=== PATIENT | female | born 1950 | race Caucasian/White ===

== ENCOUNTER 2019-02-24 10:29 | Inpatient (IN) ==
[2019-02-24] MEDS ORDERED: LACTATED RINGERS 1,000 ML IV ONE (11:43)
[2019-02-24] MEDS ORDERED: AZITHROMYCIN 500 MG in DEXTROSE 5% IN WATER 250 ML IV SCH (11:45)
[2019-02-24] MEDS ORDERED: methylPREDNISolone SOD SUCC 125 MG/2 ML VIAL IV ONE (11:45)
[2019-02-24] MEDS ORDERED: cefTRIAXone 1 GM in DEXTROSE 5% IN WATER 50 ML IV SCH (11:45)
[2019-02-24] MEDS ORDERED: IPRATROPIUM/ALBUTEROL 3 ML AMPUL.NEB NEB ONE (11:46)
--- NOTE | 2019-02-24 12:03 | Emergency Department Note ---
Weakness HPI - General Chief complaint: Weakness Stated complaint: Weakness, SOB Time Seen by Provider: 02/24/19 10:45 Source: EMS Mode of arrival: EMS Limitations: no limitations - History of Present Illness HPI Narrative: This 68-year-old female is brought in by ambulance secondary to concerns by the adult protective services worker. APS was in today to visit with the patient, had serious concerns regarding hygiene and healthcare issues of this patient in the private home setting up. Apparently, the house was infested with myself, the patient was too weak to take care of herself, she was diagnosis having metastatic lung cancer yesterday, metastatic to the chest wall. She continues to smoke 3 packages a day, is unable to provide meals for herself, is not eating, not drinking fluids, she's having issues with pain even though she was given hydrocodone yesterday for her lung cancer. She wanted to go home and yesterday, did issue suicidal statements, but then it was thought that she was still safe to go home. His refusing care yesterday, had an elevated white count, does have a history of COPD as well as lung cancer and at this time is brought in because she is not safe to stay at home. Also Adult Protective Services was being an advocate for her and was recommending that her house be cleaned and the infestation issue addressed before she can go back home. She is willing to stay at this point, at least 1 night for hydration, comfort care issues and I told her we could at least address her COPD. MD Complaint: generalized weakness - Related Data Previous Rx's Medication Instructions Recorded Albuterol Sulfate [Ventolin] 2 puff INH Q4-6HP PRN #1 inhaler 02/23/19 Allergies Allergy/AdvReac Type Severity Reaction Status Date / Time Sulfa (Sulfonamide Allergy Hives Verified 02/24/19 14:39 Antibiotics) Review of Systems Limitations: ROS unobtainable due to patients medical condition Constitutional: Reports: weakness, weight change, sweats Cardiovascular: Reports: chest pain Past Medical History - Past Medical History Source: nursing notes reviewed Medical history: Reports: cancer, COPD, hypertension Surgical history ED: Reports: non-contributory - Social History smoking status: Current every day smoker Alcohol use: Reports: Unknown Drug use: Reports: unknown Physical Exam Limitations: physical limitation General appearance: alert, in distress Head: atraumatic, normocephalic, normal inspection Eye: Present: normal appearance, PERRL, EOMI. Absent: scleral icterus ENT: Present: normal exam, normal oropharynx, mucous membranes dry, TM's normal bilaterally Neck: Present: normal inspection, full ROM. Absent: meningismus Chest: Present: tenderness, other (tender to the left lateral chest wall) Respiratory: Present: respiratory distress, rales/crackles, wheezes, accessory muscle use, prolonged expiratory phase, decreased breath sounds Cardiovascular: Present: regular rate, tachycardia, systolic murmur Abdominal: Present: soft, normal bowel sounds. Absent: distention, tenderness, guarding, rebound Extremities: Present: normal inspection, full ROM. Absent: tenderness, pedal edema Back: Present: normal inspection. Absent: CVA tenderness (R), CVA tenderness (L) Neurological: Present: alert, oriented X3. Absent: motor sensory deficit Psychiatric: Present: depressed, flat affect Skin: Present: warm, dry, cyanosis Course Vital Signs Temperature 97.7 F 02/24/19 10:30 Respiratory Rate 24 H 02/24/19 10:30 Blood Pressure 173/123 02/24/19 10:30 Temperature 97.7 F 02/24/19 18:57 Pulse Rate 107 H 02/24/19 20:10 Respiratory Rate 95 H 02/24/19 20:10 Blood Pressure 130/79 02/24/19 18:57 Pulse Oximetry (%) 97 02/24/19 18:57 Weakness - MDM Narrative Medical decision making narrative: Impression is COPD exacerbation, metastatic lung cancer. Pneumonia. Discussed hospital admission with Dr. Dukes - Lab Data Lab results reviewed: Yes I reviewed the patient's lab results. Result diagrams: 02/24/19 12:05 02/24/19 12:05 Lab Results 02/24/19 02/24/19 02/24/19 Range/Units 12:05 12:05 12:05 WBC 13.0 H (4.5-11.0) K/mcL RBC 5.59 H (4.00-5.20) M/mcL Hgb 15.5 H (12.0-15.0) g/dL Hct 48.5 H (36.0-48.0) % MCV 86.8 (80.0-100.0) fL MCH 27.8 (26.0-34.0) pg MCHC 32.0 (31.0-36.0) g/dL RDW 14.1 (11.5-14.5) % Plt Count 333 (140-440) K/mcL MPV 9.8 (7.4-10.4) fL Gran % 84.7 H (38.0-78.0) % Lymph % (Auto) 6.9 L (15.5-49.0) % [place] % (Auto) 8.2 (1.0-12.0) % Eos % (Auto) 0.1 (0.0-7.0) % Baso % (Auto) 0.1 (0.0-2.0) % Gran # 11.0 H (1.8-8.0) K/mcL Lymph # (Auto) 0.9 L (1.5-4.8) K/mcL [place] # (Auto) 1.1 H (0.1-0.9) K/mcL Eos # (Auto) 0 (0.0-0.7) K/mcL Baso # (Auto) 0 (0.0-0.3) K/mcL VBG Lactic Acid (0.5-2.0) mmol/L Sodium 136 (133-145) mmol/L Potassium 3.9 (3.3-5.1) mmol/L Chloride 97 (96-108) mmol/L Carbon Dioxide 22 (22-30) mmol/L Anion Gap 17.0 H (8-16) BUN 25 H (8-23) mg/dl Creatinine 0.7 (0.6-1.1) mg/dl GFR Calculation 89 Glucose 87 (70-105) mg/dL Calcium 10.1 (8.6-10.4) mg/dl Total Bilirubin 1.1 H (0.0-1.0) mg/dL AST 38 H (0-37) U/l ALT 15 (0-40) U/l Alkaline Phosphatase 118 H (39-117) U/L Troponin T < 0.01 (0-0.03) ng/ml NT-Pro-B Natriuret Pep 2282.0 H (0-125) pg/ml Total Protein 9.5 H (5.9-8.4) gm/dL Albumin 4.1 (3.2-5.2) gm/dL Globulin 5.4 H (2.2-3.7) gm/dL Albumin/Globulin Ratio 0.8 L (1.0-2.3) 02/24/19 Range/Units 12:48 WBC (4.5-11.0) K/mcL RBC (4.00-5.20) M/mcL Hgb (12.0-15.0) g/dL Hct (36.0-48.0) % MCV (80.0-100.0) fL MCH (26.0-34.0) pg MCHC (31.0-36.0) g/dL RDW (11.5-14.5) % Plt Count (140-440) K/mcL MPV (7.4-10.4) fL Gran % (38.0-78.0) % Lymph % (Auto) (15.5-49.0) % [place] % (Auto) (1.0-12.0) % Eos % (Auto) (0.0-7.0) % Baso % (Auto) (0.0-2.0) % Gran # (1.8-8.0) K/mcL Lymph # (Auto) (1.5-4.8) K/mcL [place] # (Auto) (0.1-0.9) K/mcL Eos # (Auto) (0.0-0.7) K/mcL Baso # (Auto) (0.0-0.3) K/mcL VBG Lactic Acid 1.7 (0.5-2.0) mmol/L Sodium (133-145) mmol/L Potassium (3.3-5.1) mmol/L Chloride (96-108) mmol/L Carbon Dioxide (22-30) mmol/L Anion Gap (8-16) BUN (8-23) mg/dl Creatinine (0.6-1.1) mg/dl GFR Calculation Glucose (70-105) mg/dL Calcium (8.6-10.4) mg/dl Total Bilirubin (0.0-1.0) mg/dL AST (0-37) U/l ALT (0-40) U/l Alkaline Phosphatase (39-117) U/L Troponin T (0-0.03) ng/ml NT-Pro-B Natriuret Pep (0-125) pg/ml Total Protein (5.9-8.4) gm/dL Albumin (3.2-5.2) gm/dL Globulin (2.2-3.7) gm/dL Albumin/Globulin Ratio (1.0-2.3) - Radiology Data Radiology results reviewed: Yes I reviewed the patient's radiology results. Disposition Pt seen by LATHE MACHINE OPERATOR/PA only: No Clinical Impression: Lung cancer Disposition: Xfer As Inpt ([facility]) Condition: Serious
[2019-02-24] MEDS ORDERED: FAMOTIDINE 20 MG TABLET PO ONE (12:05)
[2019-02-24] MEDS ORDERED: NAPROXEN 250 MG TABLET PO ONE (12:05)
[2019-02-24] MEDS ORDERED: NITROGLYCERIN 1 GM OINT.TOP TD ONE (12:05)
[2019-02-24] MEDS ORDERED: AZITHROMYCIN 500 MG VIAL IV ONE (12:22)
[2019-02-24 12:34] LABS: Basophils # (Auto) 0 K/mcL (0.0-0.3); Basophils % (Auto) 0.1 % (0.0-2.0); Eosinophils # (Auto) 0 K/mcL (0.0-0.7); Eosinophils % (Auto) 0.1 % (0.0-7.0); Granulocytes % (Auto) 84.7 % (38.0-78.0); Hematocrit 48.5 % (36.0-48.0); Hemoglobin 15.5 g/dL (12.0-15.0); Lymphocytes # (Auto) 0.9 K/mcL (1.5-4.8); Lymphocytes % (Auto) 6.9 % (15.5-49.0); Mean Cell Volume 86.8 fL (80.0-100.0); Mean Platelet Volume 9.8 fL (7.4-10.4); Monocytes # (Auto) 1.1 K/mcL (0.1-0.9); Monocytes % (Auto) 8.2 % (1.0-12.0); Platelet Count 333 K/mcL (140-440); RBC 5.59 M/mcL (4.00-5.20); Red Cell Distribution Width 14.1 % (11.5-14.5)
--- NOTE | 2019-02-24 12:40 | Internal Med History&Physical ---
Medical - H&P: [facility] Patient information: Note initiated : 02/24/19 at 12:35 pm Service Date, if different from initiated Date: [] Patient: Juanis Ward a 68 y/o F admitted on for Weakness, SOB. Chief Complaint: [] Chief complaint: Shortness of breath, cough and chest pain History of present illness: Ms. Ward is a 68 year old F with a known history of 100 pack history of smoking active smoker and COPD who presents to the second time to the ER after she is brought in by APS services with significant concerns about her ability to take care of herself. Patient was diagnosed with metastatic cancer on 02/[address] involving chest/mediastinum with right lung obstructive pneumon ia/collapse. She however refused treatment and chose to go home. During today's evaluation she was found to have a white count of 13,000, lactic acid 2.3 and profoundly hypoxic with sats low 80s. During today's visit patient expressed consent for hospitalization for management of COPD however she does not want cancer to be addressed and wants to be comfortable. She also refused IV steroids but agreeable to antibiotics and inhaled bronchodilators. Hospital service was consulted for management of above. At the time of evaluation patient is very anxious. She is extremely malnourished. Complains of mid chest pain in the setting of metastatic lung tumor. Pain exacerbates with movement and deep breaths. She endorses to yellow productive sputum with increasing purulence. She she also endorses to incontinence and occasional diarrhea. She endorses to loss of appetite but denies hemoptysis, headache or photophobia or vision changes. She denies sick contacts but continues to smoke to 3 packs a day. Her only next of kin is her brother Tremayne but does not have any other help or friends in town. She lives alone and from the description of APS services appears to be extremely unhy gienic and hazardous health situation with feces everywhere. Review of systems 10 point review system was performed and is negative except for ones cussed above Medical - H&P: PMH Medical history: COPD Tobacco dependence Malnutrition Recent diagnosis of lung cancer Medical - H&P: Meds Home Medications Medication Instructions Recorded Confirmed Type Albuterol Sulfate [Ventolin] 2 puff INH Q4-6HP PRN #1 inhaler 02/23/19 02/24/19 Rx Allergies Allergy/AdvReac Type Severity Reaction Status Date / Time Sulfa (Sulfonamide Allergy Mild Hives Verified 02/25/19 07:12 Antibiotics) Medical - H&P: Exam - Constitutional Vitals: Temp Resp BP 97.7 F 25 H 180/160 02/24/19 10:30 02/24/19 11:47 02/24/19 11:47 General appearance: moderate distress (Chest pain and shortness of breath) Exam: Patient alert and respond to commands Head normocephalic Oral cavity dry No ear nose discharge Neck lymphadenopathy noted S1-S2 hyperdynamic Pansystolic murmur grade 2 Absent breath sounds right chest Diminished breath sounds left side Expiratory rhonchi Abdomen soft nontender Lower extremity no cyanosis, upper extremity digital clubbing noted with cyanosis Psych alert cooperative but anxious Neuro nonfocal Medical - H&P: Reslt - Labs CBC & Chem 7: 02/25/19 03:50 02/25/19 03:50 Labs: Short CBC 02/24/19 Range/Units 12:05 WBC 13.0 H (4.5-11.0) K/mcL Hgb 15.5 H (12.0-15.0) g/dL Hct 48.5 H (36.0-48.0) % Plt Count 333 (140-440) K/mcL Medical - H&P: A/P (1) Metastatic cancer to chest wall Current visit: Yes Status: Acute * Metastatic cancer likely lung primary with this extension to chest wall/bones. Aggressive pain management. Patient does not want malignancy addressed including further evaluation with biopsy or pulmonary consult. Patient considering hospice * Pain management as needed opioids * Right lung collapse secondary to hilar mass with extrinsic compression- continue pulmonary toilet. Patient does not want bronchoscopy or pulmonary interventions. Extremely poor prognosis * COPD exacerbation-antibiotics/bronchodilators. Patient refuses steroids * Protein calorie malnutrition-protein calorie supplements per dietitian * DNR * Prophylaxis heparin Plan * Inpatient admission, anticipate a minimum of 2 midnight hospitalization * COPD management guidelines * Aggressive pain management * Goals of care coordination in light of extremely poor prognosis, possible transition to hospice * Case management coordinate safe discharge plan
[2019-02-24 13:17] LABS: ALT/SGPT 15 U/l (0-40); AST/SGOT 38 U/l (0-37); Albumin 4.1 gm/dL (3.2-5.2); Albumin/Globulin Ratio 0.8 (1.0-2.3); Alkaline Phosphatase 118 U/L (39-117); Bilirubin,Total 1.1 mg/dL (0.0-1.0); Blood Urea Nitrogen 25 mg/dl (8-23); Calcium 10.1 mg/dl (8.6-10.4); Carbon Dioxide 22 mmol/L (22-30); Chloride 97 mmol/L (96-108); Globulin 5.4 gm/dL (2.2-3.7); Glomerular Filtration Rate 89; Glucose 87 mg/dL (70-105)
[2019-02-24] MEDS ORDERED: 0.9 % SODIUM CHLORIDE 1,000 ML IV ONE (13:25)
[2019-02-24] MEDS ORDERED: LEVOFLOXACIN 500 MG TABLET PO ONE (13:29)
[2019-02-24] MEDS ORDERED: ACETAMINOPHEN 650 MG/65 ML BOTTLE IV PRN (14:20)
[2019-02-24] MEDS ORDERED: ONDANSETRON 4 MG/2 ML VIAL IV PRN (14:20)
[2019-02-24] MEDS ORDERED: POLYETHYLENE GLYCOL 3350 17 GM PACKET PO PRN (14:20)
[2019-02-24] MEDS ORDERED: BISACODYL 10 MG SUPP.RECT PR PRN (14:20)
[2019-02-24] MEDS ORDERED: ONDANSETRON 4 MG ODT TABLET SL PRN (14:20)
[2019-02-24] MEDS ORDERED: MAGNESIUM SULFATE 2 GM/50 ML BAG IV PRN (14:20)
[2019-02-24] MEDS ORDERED: ACETAMINOPHEN 325 MG TABLET PO PRN (14:20)
[2019-02-24] MEDS ORDERED: POTASSIUM CHLORIDE 20 MEQ PACKET PO PRN (14:20)
[2019-02-24] MEDS ORDERED: MAGNESIUM HYDROXIDE 30 ML ORAL.SUSP PO PRN (14:20)
[2019-02-24] MEDS ORDERED: LEVOFLOXACIN 250 MG/50 ML BAG IV ONE (14:45)
[2019-02-24] MEDS: IPRATROPIUM/ALBUTEROL 3 ML AMPUL.NEB NEB SCH ×3 (14:56→22:38)
[2019-02-24] MEDS: 0.9 % SODIUM CHLORIDE 10 ML SYRINGE IV SCH ×2 (14:59→20:03)
[2019-02-24] MEDS: 0.9 % SODIUM CHLORIDE 1,000 ML IV SCH (16:47)
[2019-02-24] MEDS: BUDESONIDE 0.5 MG/2 ML AMPUL.NEB NEB SCH (19:00)
[2019-02-24] MEDS: LORazepam 2 MG/ML VIAL IV PRN (20:02)
[2019-02-24] MEDS: NICOTINE 21 MG PATCH TOPICAL SCH (20:02)
[2019-02-24] MEDS: DOCUSATE SODIUM 100 MG CAPSULE PO SCH (20:03)
[2019-02-24] MEDS: SENNOSIDES/DOCUSATE SODIUM 1 TAB TABLET PO SCH (20:03)
[2019-02-24] MEDS: HEPARIN 5,000 UNIT/ML VIAL SQ SCH (20:12)
[2019-02-24] MEDS ORDERED: MELATONIN 3 MG TABLET PO PRN (21:00)
[2019-02-25] MEDS: LORazepam 2 MG/ML VIAL IV PRN ×2 (02:00→11:07)
[2019-02-25] MEDS: IPRATROPIUM/ALBUTEROL 3 ML AMPUL.NEB NEB SCH ×5 (03:37→19:39)
[2019-02-25] MEDS: 0.9 % SODIUM CHLORIDE 1,000 ML IV SCH ×2 (04:07→12:27)
[2019-02-25] MEDS: 0.9 % SODIUM CHLORIDE 10 ML SYRINGE IV SCH ×3 (05:29→21:16)
[2019-02-25 05:44] LABS: Hematocrit 42.7 % (36.0-48.0); Hemoglobin 13.5 g/dL (12.0-15.0); Mean Cell Volume 88.5 fL (80.0-100.0); Mean Corpuscular HGB Conc 31.6 g/dL (31.0-36.0); Mean Platelet Volume 9.9 fL (7.4-10.4); Platelet Count 263 K/mcL (140-440); RBC 4.83 M/mcL (4.00-5.20); Red Cell Distribution Width 14.5 % (11.5-14.5); WBC 9.5 K/mcL (4.5-11.0)
[2019-02-25 05:50] LABS: Chloride 100 mmol/L (96-108)
[2019-02-25 05:52] LABS: ALT/SGPT 13 U/l (0-40); AST/SGOT 32 U/l (0-37); Albumin/Globulin Ratio 0.7 (1.0-2.3); Alkaline Phosphatase 98 U/L (39-117); Bilirubin,Direct 0.3 mg/dL (0.0-0.3); Bilirubin,Total 0.8 mg/dL (0.0-1.0); Blood Urea Nitrogen 27 mg/dl (8-23); Calcium 9.3 mg/dl (8.6-10.4); Carbon Dioxide 20 mmol/L (22-30); Globulin 4.6 gm/dL (2.2-3.7); Glomerular Filtration Rate 89; Glucose 80 mg/dL (70-105); Lactate Dehydrogenase 534 U/L (94-250); Phosphorous 2.7 mg/dL (2.7-4.5); Triglycerides 114 mg/dl (<150); Uric Acid 6.7 mg/dL (2.5-8.0)
[2019-02-25] MEDS: BUDESONIDE 0.5 MG/2 ML AMPUL.NEB NEB SCH ×2 (07:17→19:39)
[2019-02-25 08:11] LABS: Lymphocytes % 5 % (15-49); Monocytes % (Manual) 16 % (1-12); Platelet Estimate NORMAL (NORMAL); RBC Morphology NORMAL (NORMAL); Segmented Neutrophils % 79 % (38-78)
[2019-02-25] MEDS ORDERED: LEVOFLOXACIN 500 MG TABLET PO SCH (09:00)
[2019-02-25] MEDS: LEVOFLOXACIN 750 MG/150 ML BAG IV SCH (09:34)
[2019-02-25] MEDS: HEPARIN 5,000 UNIT/ML VIAL SQ SCH ×3 (09:34→21:19)
[2019-02-25] MEDS: MULTIVIT,THER IRON,CA,FA & MIN 1 TABLET PO SCH (09:35)
[2019-02-25] MEDS: THIAMINE 100 MG TABLET PO SCH (09:35)
[2019-02-25] MEDS: DOCUSATE SODIUM 100 MG CAPSULE PO SCH ×2 (09:35→21:15)
[2019-02-25] MEDS: NICOTINE 21 MG PATCH TOPICAL SCH (09:43)
[2019-02-25] MEDS ORDERED: LEVOFLOXACIN 500 MG TABLET PO ONE (13:24)
[2019-02-25] MEDS: HYDROmorphone 2 MG/ML VIAL IV PRN (14:54)
--- NOTE | 2019-02-25 15:17 | Internal Med Progress Note ---
Medical - PN: Subj Patient information: Note initiated : 02/25/19 at 3:15 pm Service Date, if different from initiated Date: [] Patient: Juanis Ward a 68 y/o F admitted on 02/24/19 for Weakness, SOB. Chief Complaint: [] Interval history: Ms. Ward is a 68 year old F with a known 100 pack history of smoking and COPD who presents to the second time to the ER in 24 hours after she is brought in by APS services with significant concerns about her ability to take care of herself. Patient was diagnosed with metastatic cancer on 02/[address] involving chest/mediastinum with right lung obstructive pneumonia/collapse. She however refused treatment and chose to go home. During today's evaluation a white count of 13,000, lactic acid 2.3 and profoundly hypoxic with sats low 80s. Patient expressed consent for hospitalization for management of COPD however she does not want cancer to be addressed and wants to be comfortable. She also refused IV steroids but agreeable to antibiotics and inhaled bronchodilators. Hospital service was consulted for management of above. At the time of evaluation patient is very anxious. She is extremely malnourished. Complains of mid chest pain in the setting of metastatic lung tumor. Pain exacerbates with movement and deep breaths. She endorses to yellow productive sputum with increasing purulence. She she also endorses to incontinence and occasional diarrhea. She endorses to loss of appetite but denies hemoptysis, headache or photophobia or vision changes. She denies sick contacts but continues to smoke to 3 packs a day. Her only next of kin is her brother Tremayne but does not have any other help or friends in town. She lives alone and from the description of APS services appears to be extremely unhygienic and hazardous health situation with feces everywhere. 02/25-patient intimately confused. No family members at bedside. Continues to refuse treatment. Wants to go home. Case management coordinating a safe discharge plan. No overnight fever chills. Hypoxia improved now on room air. White count down to 9.5. Poor nutritional status. - Constitutional Vitals: Vital Signs Temp Pulse Resp BP Pulse Ox 98.3 F 106 H 18 149/88 93 02/25/19 11:55 02/25/19 11:55 02/25/19 11:55 02/25/19 11:55 02/25/19 11:55 Period Temp Pulse Resp BP Sys/[place] Pulse Ox Last 24 Hr 97.7 F-98.9 F 91-110 18-95 108-149/70-88 92-97 Intake and Output 02/25/19 02/25/19 02/25/19 05:59 13:59 21:59 Output Total 20 100 Balance -20 -100 Weight 98 lb 8 oz Patient Weight 02/26/19 05:59 Weight 98 lb 8 oz Intake & Output: Intake & Output 02/25/19 02/25/19 02/25/19 05:59 13:59 21:59 Output Total 20 100 Balance -20 -100 Weight 98 lb 8 oz Output: Void Amount 20 100 Other: Urine Color Tea Colored # Voids 1 1 General appearance: moderate distress Exam: Intermittently agitated Anxious Nonlabored breathing Was found smoking in the room Medical - PN: Obj Da - Labs CBC & Chem 7: 02/25/19 03:50 02/25/19 03:50 Labs: Abnormal Lab Results 02/25/19 02/25/19 02/24/19 03:50 03:50 12:05 WBC RBC Hgb Hct Gran % Lymph % (Auto) Gran # Lymph # (Auto) [place] # (Auto) Seg Neutrophils % 79 H Lymphocytes % 5 L Monocytes % (Manual) 16 H Carbon Dioxide 20 L Anion Gap 17.0 H BUN 27 H 25 H Total Bilirubin 1.1 H AST 38 H Alkaline Phosphatase 118 H Lactate Dehydrogenase 534 H NT-Pro-B Natriuret Pep 2282.0 H Total Protein 9.5 H Albumin 3.0 L Globulin 4.6 H 5.4 H Albumin/Globulin Ratio 0.7 L 0.8 L 02/24/19 12:05 WBC 13.0 H RBC 5.59 H Hgb 15.5 H Hct 48.5 H Gran % 84.7 H Lymph % (Auto) 6.9 L Gran # 11.0 H Lymph # (Auto) 0.9 L [place] # (Auto) 1.1 H Seg Neutrophils % Lymphocytes % Monocytes % (Manual) Carbon Dioxide Anion Gap BUN Total Bilirubin AST Alkaline Phosphatase Lactate Dehydrogenase NT-Pro-B Natriuret Pep Total Protein Albumin Globulin Albumin/Globulin Ratio Meds: Medications Acetaminophen (Tylenol) 650 mg PO Q4-6HP PRN; Protocol PRN Reason: Per Pain Protocol/Fever > 101 Hydrocodone Bitart/Acetaminophen ([place] 5/325mg) 0 tab PO Q4HP PRN; Protocol PRN Reason: Per Pain Protocol Albuterol/Ipratropium (Duoneb) 3 ml NEB Q4HRT [facility] Last Admin: 02/25/19 10:14 Dose: 3 ml Documented by: Bisacodyl (Dulcolax) 10 mg OK Q2-3DAYS PRN PRN Reason: Constipation Budesonide (Pulmicort) 0.5 mg NEB Q12 [facility] Last Admin: 02/25/19 07:17 Dose: Not Given Documented by: Docusate Sodium (Colace) 100 mg PO BID [facility] Last Admin: 02/25/19 09:35 Dose: 100 mg Documented by: Heparin Sodium (Porcine) (Heparin) 5,000 unit SQ Q12 [facility] Last Admin: 02/25/19 11:43 Dose: Not Given Documented by: Hydromorphone HCl (Dilaudid) 0 mg IV Q4HP PRN; Protocol PRN Reason: Per Pain Protocol Last Admin: 02/25/19 14:54 Dose: 0.5 mg Documented by: Sodium Chloride (Sodium Chloride 0.9%) 1,000 mls @ 50 mls/hr IV .Q20H [facility] Stop: 02/27/19 02:19 Last Admin: 02/25/19 12:27 Dose: Not Given Documented by: Acetaminophen (Ofirmev) 650 mg in 65 mls @ 130 mls/hr IV Q6HP PRN; Protocol PRN Reason: Per Pain Protocol/Fever > 101 Magnesium Sulfate (Magnesium Sulfate) 2 gm in 50 mls @ 50 mls/hr IV UD PRN PRN Reason: MG = or < 1.7 Levofloxacin (Levaquin) 750 mg in 150 mls @ 100 mls/hr IV DAILY [facility]; Protocol Last Admin: 02/25/19 09:34 Dose: 100 mls/hr Documented by: Iron Carb/Multivit/[place]/Folic Acid (Multivitamin W/Minerals) 1 tab PO DAILY [facility] Last Admin: 02/25/19 09:35 Dose: 1 tab Documented by: Lorazepam (Ativan) 0.5 mg IV Q6HP PRN PRN Reason: ANXIETY/SEDATION Last Admin: 02/25/19 11:07 Dose: 0.5 mg Documented by: Magnesium Hydroxide (Milk Of Magnesia) 30 ml PO HSP PRN PRN Reason: Constipation Melatonin (Melatonin 3mg Tablet) 3 mg PO HSP PRN PRN Reason: Insomnia Nicotine (Nicoderm) 21 mg TOPICAL DAILY@1000 [facility] Last Admin: 02/25/19 09:43 Dose: 21 mg Documented by: Ondansetron HCl (Zofran Odt) 4 mg SL Q4-6HP PRN; Protocol PRN Reason: Nausea And Vomiting Ondansetron HCl (Zofran) 4 mg IV Q4-6HP PRN; Protocol PRN Reason: Nausea And Vomiting Pneumococcal Polyvalent Vaccine (Pneumovax 23) 0.5 ml IM .ONCE ONE Stop: 02/26/19 10:01 Polyethylene Glycol (Miralax) 17 gm PO DAILYP PRN PRN Reason: Constipation Potassium Chloride (Klor-Con) 40 meq PO DAILYP PRN PRN Reason: K+ < 3.5 Senna/Docusate Sodium (Senna Plus Tablet) 1 tab PO HS [facility] Last Admin: 02/24/19 20:03 Dose: Not Given Documented by: Sodium Chloride (Saline Flush) 10 ml IV Q8 [facility] Last Admin: 02/25/19 14:54 Dose: Not Given Documented by: Thiamine HCl (Vitamin B1) 100 mg PO DAILY [facility] Last Admin: 02/25/19 09:35 Dose: 100 mg Documented by: Tramadol HCl (Ultram) 50 mg PO Q4-6HP PRN; Protocol PRN Reason: Per Pain Protocol Medical - PN: A/P - Time Spent With Patient Total time spent is greater than 50% in coordination of care (as documented) at patient's floor/unit and/or counseling patient: 25 - 35 minutes (1) Metastatic cancer to chest wall Status: Acute Assessment and plan: * Right lung collapse with obstructive pneumonia secondary to hilar mass with extrinsic compression-continue pulmonary toilet. Patient does not want bronchoscopy or pulmonary interventions. Extremely poor prognosis * Metastatic cancer likely lung primary with this extension to chest wall/bones. Aggressive pain management. Patient does not want malignancy addressed including further evaluation with biopsy or pulmonary consult. Patient considering hospice * Pain management continue as needed opioids * COPD exacerbation-antibiotics/bronchodilators. Patient intermittently refuses treatment. Does not want IV steroids * Protein calorie malnutrition-continue supplements per dietitian * Tobacco dependence-patient was found smoking in the room. * DNR * Prophylaxis heparin Plan * Continue COPD management per guidelines * Antibiotic coverage * COPD management on bronchodilators * Aggressive pain management * Goals of care coordination in light of extremely poor prognosis, await transition to hospice * Case management coordinating discharge plan Current Visit: Yes Medical - PN: Qual - VTE Deep Vein Thrombosis/Pulmonary Embolism Present on Admission: No
[2019-02-25] MEDS: SENNOSIDES/DOCUSATE SODIUM 1 TAB TABLET PO SCH (21:15)
[2019-02-25] MEDS: HYDROcodone/APAP 5/325MG TABLET PO PRN ×2 (21:16→22:29)
[2019-02-26] MEDS: HYDROmorphone 2 MG/ML VIAL IV PRN ×2 (00:57→11:59)
[2019-02-26] MEDS: traMADol 50 MG TABLET PO PRN ×2 (02:43→14:38)
[2019-02-26] MEDS: 0.9 % SODIUM CHLORIDE 1,000 ML IV SCH ×2 (02:44→11:59)
[2019-02-26] MEDS: LORazepam 2 MG/ML VIAL IV PRN (02:45)
[2019-02-26] MEDS: 0.9 % SODIUM CHLORIDE 10 ML SYRINGE IV SCH ×3 (05:45→20:51)
[2019-02-26] MEDS: IPRATROPIUM/ALBUTEROL 3 ML AMPUL.NEB NEB SCH ×6 (07:46→19:51)
[2019-02-26] MEDS: BUDESONIDE 0.5 MG/2 ML AMPUL.NEB NEB SCH ×2 (07:48→19:51)
[2019-02-26] MEDS: HEPARIN 5,000 UNIT/ML VIAL SQ SCH ×2 (08:48→20:51)
[2019-02-26] MEDS: DOCUSATE SODIUM 100 MG CAPSULE PO SCH ×2 (08:48→20:51)
[2019-02-26] MEDS: THIAMINE 100 MG TABLET PO SCH (08:48)
[2019-02-26] MEDS: MULTIVIT,THER IRON,CA,FA & MIN 1 TABLET PO SCH (08:48)
[2019-02-26] MEDS: LEVOFLOXACIN 750 MG/150 ML BAG IV SCH (08:49)
[2019-02-26] MEDS: HYDROcodone/APAP 5/325MG TABLET PO PRN ×2 (08:58→20:46)
[2019-02-26 09:14] LABS: Hematocrit 40.7 % (36.0-48.0); Hemoglobin 13.1 g/dL (12.0-15.0); Mean Cell Volume 87.4 fL (80.0-100.0); Mean Corpuscular HGB Conc 32.2 g/dL (31.0-36.0); Mean Platelet Volume 10.1 fL (7.4-10.4); Platelet Count 317 K/mcL (140-440); RBC 4.65 M/mcL (4.00-5.20); Red Cell Distribution Width 14.9 % (11.5-14.5); WBC 7.6 K/mcL (4.5-11.0)
[2019-02-26 10:00] LABS: Anisocytosis FEW (NONE SEEN); Band Neutrophils % 1 % (0-10); Lymphocytes % 23 % (15-49); Monocytes % (Manual) 10 % (1-12); Platelet Estimate NORMAL (NORMAL); RBC Morphology ABNORM (NORMAL); Segmented Neutrophils % 66 % (38-78)
[2019-02-26] MEDS ORDERED: FLU VACC QS2019-20(6MOS UP)/PF 60 MCG/0.5 ML SYRINGE IM ONE (10:00)
[2019-02-26] MEDS ORDERED: PNEUMOCOCCAL 23-VAL P-SAC VAC 0.5 ML SYRINGE IM ONE (10:00)
[2019-02-26 10:03] LABS: ALT/SGPT 13 U/l (0-40); AST/SGOT 35 U/l (0-37); Albumin 3.3 gm/dL (3.2-5.2); Albumin/Globulin Ratio 0.8 (1.0-2.3); Alkaline Phosphatase 98 U/L (39-117); Bilirubin,Direct 0.2 mg/dL (0.0-0.3); Bilirubin,Total 0.6 mg/dL (0.0-1.0); Blood Urea Nitrogen 24 mg/dl (8-23); Calcium 9.1 mg/dl (8.6-10.4); Carbon Dioxide 25 mmol/L (22-30); Chloride 103 mmol/L (96-108); Globulin 4.4 gm/dL (2.2-3.7); Glomerular Filtration Rate 89; Glucose 97 mg/dL (70-105); Phosphorous 2.9 mg/dL (2.7-4.5); Triglycerides 115 mg/dl (<150); Uric Acid 5.3 mg/dL (2.5-8.0)
[2019-02-26 10:08] LABS: Lactate Dehydrogenase 551 U/L (94-250)
--- NOTE | 2019-02-26 10:55 | Internal Med Progress Note ---
Medical - PN: Subj Patient information: Note initiated : 02/26/19 at 10:52 am Service Date, if different from initiated Date: [] Patient: Juanis Ward a 68 y/o F admitted on 02/24/19 for Weakness, SOB. Chief Complaint: [] Interval history: Ms. Ward is a 68 year old F with a known 100 pack history of smoking and COPD who presents to the second time to the ER in 24 hours after she is brought in by APS services with significant concerns about her ability to take care of herself. Patient was diagnosed with metastatic cancer on 02/[address] involving chest/mediastinum with right lung obstructive pneumonia/collapse. She however refused treatment and chose to go home. During today's evaluation a white count of 13,000, lactic acid 2.3 and profoundly hypoxic with sats low 80s. Patient expressed consent for hospitalization for management of COPD however she does not want cancer to be addressed and wants to be comfortable. She also refused IV steroids but agreeable to antibiotics and inhaled bronchodilators. Hospital service was consulted for management of above. At the time of evaluation patient is very anxious. She is extremely malnourished. Complains of mid chest pain in the setting of metastatic lung tumor. Pain exacerbates with movement and deep breaths. She endorses to yellow productive sputum with increasing purulence. She she also endorses to incontinence and occasional diarrhea. She endorses to loss of appetite but denies hemoptysis, headache or photophobia or vision changes. She denies sick contacts but continues to smoke to 3 packs a day. Her only next of kin is her brother Tremayne but does not have any other help or friends in town. She lives alone and from the description of APS services appears to be extremely unhygienic and hazardous health situation with feces everywhere. 02/25-patient intimately confused. No family members at bedside. Continues to refuse treatment. Wants to go home. Case management coordinating a safe discharge plan. No overnight fever chills. Hypoxia improved now on room air. White count down to 9.5. Poor nutritional status. 02/26-patient doing better. Now on room air. White count 7.6. Hemoglobin 10.1. Patient wishes to be full code. No family members available. - Constitutional Vitals: Vital Signs Temp Pulse Resp BP Pulse Ox 97.4 F 100 H 22 139/92 90 02/26/19 08:00 02/26/19 08:00 02/26/19 08:00 02/26/19 08:00 02/26/19 08:00 Period Temp Pulse Resp BP Sys/Guerrero Pulse Ox Last 24 Hr 97.4 F-98.3 F 91-106 14-24 139-179/88-92 89-100 Intake and Output 02/25/19 02/26/19 02/26/19 21:59 05:59 13:59 Intake Total 1150 Output Total 250 50 Balance -250 1100 Weight 102 lb Intake & Output: Intake & Output 02/25/19 02/26/19 02/26/19 21:59 05:59 13:59 Intake Total 1150 Output Total 250 50 Balance -250 1100 Weight 102 lb Intake: IV 1150 Sodium Chloride 0.9% 1,000 ml @ 1000 50 mls/hr IV .Q20H [facility] Rx#: [id number] Oral 0 Output: Urine Catheter Amount 50 Void Amount 250 Other: Meal Dinner Percent of Meal Consumed 10% Feeding Ability Independent Urine Appearance Clear Clear Urine Color Bright Yellow Light Hue Urine Odor Normal Normal General appearance: moderate distress Exam: Intimately confused Nonlabored breathing Malnourished No lymphedema Medical - PN: Obj Da - Labs CBC & Chem 7: 02/26/19 06:50 02/26/19 06:50 Labs: Abnormal Lab Results 02/26/19 02/26/19 02/25/19 06:50 06:50 03:50 WBC RBC Hgb Hct RDW 14.9 H Gran % Lymph % (Auto) Gran # Lymph # (Auto) [place] # (Auto) Seg Neutrophils % Lymphocytes % Monocytes % (Manual) RBC Morphology Abnorm A Anisocytosis Few A Carbon Dioxide 20 L Anion Gap BUN 24 H 27 H Total Bilirubin AST Alkaline Phosphatase Lactate Dehydrogenase 551 H 534 H NT-Pro-B Natriuret Pep Total Protein Albumin 3.0 L Globulin 4.4 H 4.6 H Albumin/Globulin Ratio 0.8 L 0.7 L 02/25/19 02/24/19 02/24/19 03:50 12:05 12:05 WBC 13.0 H RBC 5.59 H Hgb 15.5 H Hct 48.5 H RDW Gran % 84.7 H Lymph % (Auto) 6.9 L Gran # 11.0 H Lymph # (Auto) 0.9 L Stephenson # (Auto) 1.1 H Seg Neutrophils % 79 H Lymphocytes % 5 L Monocytes % (Manual) 16 H RBC Morphology Anisocytosis Carbon Dioxide Anion Gap 17.0 H BUN 25 H Total Bilirubin 1.1 H AST 38 H Alkaline Phosphatase 118 H Lactate Dehydrogenase NT-Pro-B Natriuret Pep 2282.0 H Total Protein 9.5 H Albumin Globulin 5.4 H Albumin/Globulin Ratio 0.8 L Meds: Medications Acetaminophen (Tylenol) 650 mg PO Q4-6HP PRN; Protocol PRN Reason: Per Pain Protocol/Fever > 101 Hydrocodone Bitart/Acetaminophen ([place] 5/325mg) 0 tab PO Q4HP PRN; Protocol PRN Reason: Per Pain Protocol Last Admin: 02/26/19 08:58 Dose: 1 tab Documented by: Albuterol/Ipratropium (Duoneb) 3 ml NEB Q4HRT [facility] Last Admin: 02/26/19 07:46 Dose: 3 ml Documented by: Bisacodyl (Dulcolax) 10 mg [place] Q2-3DAYS PRN PRN Reason: Constipation Budesonide (Pulmicort) 0.5 mg NEB Q12 [facility] Last Admin: 02/26/19 07:48 Dose: 0.5 mg Documented by: Docusate Sodium (Colace) 100 mg PO BID [facility] Last Admin: 02/26/19 08:48 Dose: Not Given Documented by: Heparin Sodium (Porcine) (Heparin) 5,000 unit SQ Q12 [facility] Last Admin: 02/26/19 08:48 Dose: 5,000 unit Documented by: Hydromorphone HCl (Dilaudid) 0 mg IV Q4HP PRN; Protocol PRN Reason: Per Pain Protocol Last Admin: 02/26/19 00:57 Dose: 0.5 mg Documented by: Sodium Chloride (Sodium Chloride 0.9%) 1,000 mls @ 50 mls/hr IV .Q20H [facility] Stop: 02/27/19 02:19 Last Admin: 02/26/19 02:44 Dose: 50 mls/hr Documented by: Acetaminophen (Ofirmev) 650 mg in 65 mls @ 130 mls/hr IV Q6HP PRN; Protocol PRN Reason: Per Pain Protocol/Fever > 101 Magnesium Sulfate (Magnesium Sulfate) 2 gm in 50 mls @ 50 mls/hr IV UD PRN PRN Reason: MG = or < 1.7 Levofloxacin (Levaquin) 750 mg in 150 mls @ 100 mls/hr IV DAILY [facility]; Protocol Last Admin: 02/26/19 08:49 Dose: 100 mls/hr Documented by: Iron Carb/Multivit/[place]/Folic Acid (Multivitamin W/Minerals) 1 tab PO DAILY [facility] Last Admin: 02/26/19 08:48 Dose: 1 tab Documented by: Lorazepam (Ativan) 0.5 mg IV Q6HP PRN PRN Reason: ANXIETY/SEDATION Last Admin: 02/26/19 02:45 Dose: 0.5 mg Documented by: Magnesium Hydroxide (Milk Of Magnesia) 30 ml PO HSP PRN PRN Reason: Constipation Melatonin (Melatonin 3mg Tablet) 3 mg PO HSP PRN PRN Reason: Insomnia Nicotine (Nicoderm) 21 mg TOPICAL DAILY@1000 [facility] Last Admin: 02/25/19 09:43 Dose: 21 mg Documented by: Ondansetron HCl (Zofran Odt) 4 mg SL Q4-6HP PRN; Protocol PRN Reason: Nausea And Vomiting Ondansetron HCl (Zofran) 4 mg IV Q4-6HP PRN; Protocol PRN Reason: Nausea And Vomiting Polyethylene Glycol (Miralax) 17 gm PO DAILYP PRN PRN Reason: Constipation Potassium Chloride (Klor-Con) 40 meq PO DAILYP PRN PRN Reason: K+ < 3.5 Senna/Docusate Sodium (Senna Plus Tablet) 1 tab PO HS [facility] Last Admin: 02/25/19 21:15 Dose: Not Given Documented by: Sodium Chloride (Saline Flush) 10 ml IV Q8 [facility] Last Admin: 02/26/19 05:45 Dose: Not Given Documented by: Thiamine HCl (Vitamin B1) 100 mg PO DAILY [facility] Last Admin: 02/26/19 08:48 Dose: 100 mg Documented by: Tramadol HCl (Ultram) 50 mg PO Q4-6HP PRN; Protocol PRN Reason: Per Pain Protocol Last Admin: 02/26/19 02:43 Dose: 50 mg Documented by: Medical - PN: A/P - Time Spent With Patient Total time spent is greater than 50% in coordination of care (as documented) at patient's floor/unit and/or counseling patient: 25 - 35 minutes (1) Metastatic cancer to chest wall Status: Acute Assessment and plan: * Right lung collapse with obstructive pneumonia secondary to hilar mass with extrinsic compression-continue pulmonary toilet. Patient does not want bronchoscopy or pulmonary interventions however wishes to be full code(explained CPR and mechanical ventilation would not help due to advancing malignancy and her decision not to pursue further work-up) Extremely poor prognosis * Metastatic cancer likely lung primary with this extension to chest wall/bones. Aggressive pain management. Patient does not want malignancy addressed including further evaluation with biopsy or pulmonary consult. She however wishes to be a full code * Pain management continue as needed opioids * COPD exacerbation-antibiotics/bronchodilators. Patient intermittently refuses treatment. Does not want IV steroids * Protein calorie malnutrition-continue supplements per dietitian * Tobacco dependence-offered nicotine patch * Full code * Prophylaxis heparin Plan * Continue bronchodilators * Continue antibiotic coverage * Pain management as indicated * Further discussions of goals of care * Case management coordinating discharge plan Current Visit: Yes Medical - PN: Qual - VTE Deep Vein Thrombosis/Pulmonary Embolism Present on Admission: No
[2019-02-26] MEDS: NICOTINE 21 MG PATCH TOPICAL SCH (11:59)
[2019-02-26] MEDS: SENNOSIDES/DOCUSATE SODIUM 1 TAB TABLET PO SCH (20:51)
[2019-02-27] MEDS: IPRATROPIUM/ALBUTEROL 3 ML AMPUL.NEB NEB SCH ×5 (00:12→15:17)
[2019-02-27] MEDS: HYDROmorphone 2 MG/ML VIAL IV PRN ×2 (03:22→15:42)
[2019-02-27] MEDS: LORazepam 2 MG/ML VIAL IV PRN ×3 (03:22→20:54)
[2019-02-27 05:30] LABS: Hematocrit 39.7 % (36.0-48.0); Hemoglobin 12.7 g/dL (12.0-15.0); Mean Cell Volume 88.4 fL (80.0-100.0); Mean Corpuscular HGB Conc 32.1 g/dL (31.0-36.0); Mean Platelet Volume 9.7 fL (7.4-10.4); Platelet Count 253 K/mcL (140-440); RBC 4.49 M/mcL (4.00-5.20); Red Cell Distribution Width 14.4 % (11.5-14.5); WBC 5.8 K/mcL (4.5-11.0)
[2019-02-27 05:59] LABS: Chloride 106 mmol/L (96-108)
[2019-02-27] MEDS: 0.9 % SODIUM CHLORIDE 10 ML SYRINGE IV SCH ×3 (06:07→21:14)
[2019-02-27 06:08] LABS: ALT/SGPT 13 U/l (0-40); AST/SGOT 42 U/l (0-37); Albumin 2.9 gm/dL (3.2-5.2); Albumin/Globulin Ratio 0.7 (1.0-2.3); Alkaline Phosphatase 89 U/L (39-117); Bilirubin,Direct < 0.2 mg/dL (0.0-0.3); Bilirubin,Total 0.4 mg/dL (0.0-1.0); Blood Urea Nitrogen 19 mg/dl (8-23); Calcium 8.7 mg/dl (8.6-10.4); Carbon Dioxide 21 mmol/L (22-30); Globulin 4.3 gm/dL (2.2-3.7); Glomerular Filtration Rate 94; Glucose 80 mg/dL (70-105); Lactate Dehydrogenase 583 U/L (94-250); Phosphorous 3.5 mg/dL (2.7-4.5); Triglycerides 123 mg/dl (<150); Uric Acid 4.7 mg/dL (2.5-8.0)
[2019-02-27] MEDS: BUDESONIDE 0.5 MG/2 ML AMPUL.NEB NEB SCH (07:20)
[2019-02-27 08:01] LABS: Eosinophils % (Manual) 2 % (0-7); Lymphocytes % 20 % (15-49); Monocytes % (Manual) 10 % (1-12); Platelet Estimate NORMAL (NORMAL); RBC Morphology NORMAL (NORMAL); Segmented Neutrophils % 68 % (38-78)
[2019-02-27] MEDS: NICOTINE 21 MG PATCH TOPICAL SCH (09:54)
[2019-02-27] MEDS: HEPARIN 5,000 UNIT/ML VIAL SQ SCH (09:54)
[2019-02-27] MEDS: LEVOFLOXACIN 750 MG/150 ML BAG IV SCH (09:54)
[2019-02-27] MEDS: DOCUSATE SODIUM 100 MG CAPSULE PO SCH (09:55)
[2019-02-27] MEDS: MULTIVIT,THER IRON,CA,FA & MIN 1 TABLET PO SCH (09:55)
[2019-02-27] MEDS: THIAMINE 100 MG TABLET PO SCH (09:55)
--- NOTE | 2019-02-27 12:23 | Internal Med Progress Note ---
Medical - PN: Subj Patient information: Note initiated : 02/27/19 at 12:20 pm Service Date, if different from initiated Date: [] Patient: Juanis Ward a 68 y/o F admitted on 02/24/19 for Weakness, SOB. Chief Complaint: [] Interval history: Ms. Ward is a 68 year old F with a known 100 pack history of smoking and COPD who presents to the second time to the ER in 24 hours after she is brought in by APS services with significant concerns about her ability to take care of herself. Patient was diagnosed with metastatic cancer on 02/[address] involving chest/mediastinum with right lung obstructive pneumonia/collapse. She however refused treatment and chose to go home. During today's evaluation a white count of 13,000, lactic acid 2.3 and profoundly hypoxic with sats low 80s. Patient expressed consent for hospitalization for management of COPD however she does not want cancer to be addressed and wants to be comfortable. She also refused IV steroids but agreeable to antibiotics and inhaled bronchodilators. Hospital service was consulted for management of above. At the time of evaluation patient is very anxious. She is extremely malnourished. Complains of mid chest pain in the setting of metastatic lung tumor. Pain exacerbates with movement and deep breaths. She endorses to yellow productive sputum with increasing purulence. She she also endorses to incontinence and occasional diarrhea. She endorses to loss of appetite but denies hemoptysis, headache or photophobia or vision changes. She denies sick contacts but continues to smoke to 3 packs a day. Her only next of kin is her brother Tremayne but does not have any other help or friends in town. She lives alone and from the description of APS services appears to be extremely unhygienic and hazardous health situation with feces everywhere. 02/25-patient intimately confused. No family members at bedside. Continues to refuse treatment. Wants to go home. Case management coordinating a safe discharge plan. No overnight fever chills. Hypoxia improved now on room air. White count down to 9.5. Poor nutritional status. 02/26-patient doing better. Now on room air. White count 7.6. Hemoglobin 10.1. Patient wishes to be full code. No family members available. 02/27 patient is clinically deteriorating. More confused and short of breath. I was able to get a hold of Tremayne Carranza patient's brother in [place]. He indicated that patient has not been in the best state of health and given her clinical situation he would not be able to provide much insight to directives as he is not the legal POA. He further confirmed that he is only been helping her sister with finances and respects shallowest wishes to be kept comfortable. I indicated that she might not make it to the hospitalization given right lung collapse due to infiltrating tumor and worsening shortness of breath with deterioration in mental status over the last 24 hours. I further advised to inform other family members who would like to see her for one last time before she succumbs to malignancy and respiratory failure. Brother Tremayne was appreciative of the call. - Constitutional Vitals: Vital Signs Temp Pulse Resp BP Pulse Ox 98.1 F 85 16 108/65 98 02/27/19 11:54 02/27/19 11:54 02/27/19 11:54 02/27/19 11:54 02/27/19 11:54 Period Temp Pulse Resp BP Sys/Guerrero Pulse Ox Last 24 Hr 97.1 F-98.9 F 62-88 14-24 108-171/65-87 92-99 Intake and Output 02/26/19 02/27/19 02/27/19 21:59 05:59 13:59 Intake Total 360 1000 120 Output Total 201 101 Balance 159 899 120 Weight 125 lb 8 oz Intake & Output: Intake & Output 02/26/19 02/27/19 02/27/19 21:59 05:59 13:59 Intake Total 360 1000 120 Output Total 201 101 Balance 159 899 120 Weight 125 lb 8 oz Intake: Nourishment/Supplement quantity 0 0 (ml) IV 1000 0 Sodium Chloride 0.9% 1,000 ml @ 1000 50 mls/hr IV .Q20H [facility] Rx#: [id number] Oral 360 120 Output: Void Amount 200 100 # of times incontinent of urine 1 1 Other: Meal Dinner Breakfast Percent of Meal Consumed 100% bites Feeding Ability Assist with Tray Set Up Nourishment/Supplement name magic cup/ pt refused put in fridge for later Urine Appearance Cloudy Clear Urine Color Dark Yellow Dark Yellow Dark Yellow # Voids 1 General appearance: moderate distress Exam: Short of breath Lethargic Minimal anxiety Nondistended abdomen Medical - PN: Obj Da - Labs CBC & Chem 7: 02/27/19 04:10 02/27/19 04:10 Labs: Abnormal Lab Results 02/27/19 02/26/19 02/26/19 04:10 06:50 06:50 WBC RBC Hgb Hct RDW 14.9 H Gran % Lymph % (Auto) Gran # Lymph # (Auto) [place] # (Auto) Seg Neutrophils % Lymphocytes % Monocytes % (Manual) RBC Morphology Abnorm A Anisocytosis Few A Carbon Dioxide 21 L Anion Gap BUN 24 H Total Bilirubin AST 42 H Alkaline Phosphatase Lactate Dehydrogenase 583 H 551 H NT-Pro-B Natriuret Pep Total Protein Albumin 2.9 L Globulin 4.3 H 4.4 H Albumin/Globulin Ratio 0.7 L 0.8 L 02/25/19 02/25/19 02/24/19 03:50 03:50 12:05 WBC RBC Hgb Hct RDW Gran % Lymph % (Auto) Gran # Lymph # (Auto) [place] # (Auto) Seg Neutrophils % 79 H Lymphocytes % 5 L Monocytes % (Manual) 16 H RBC Morphology Anisocytosis Carbon Dioxide 20 L Anion Gap 17.0 H BUN 27 H 25 H Total Bilirubin 1.1 H AST 38 H Alkaline Phosphatase 118 H Lactate Dehydrogenase 534 H NT-Pro-B Natriuret Pep 2282.0 H Total Protein 9.5 H Albumin 3.0 L Globulin 4.6 H 5.4 H Albumin/Globulin Ratio 0.7 L 0.8 L 02/24/19 12:05 WBC 13.0 H RBC 5.59 H Hgb 15.5 H Hct 48.5 H RDW Gran % 84.7 H Lymph % (Auto) 6.9 L Gran # 11.0 H Lymph # (Auto) 0.9 L [place] # (Auto) 1.1 H Seg Neutrophils % Lymphocytes % Monocytes % (Manual) RBC Morphology Anisocytosis Carbon Dioxide Anion Gap BUN Total Bilirubin AST Alkaline Phosphatase Lactate Dehydrogenase NT-Pro-B Natriuret Pep Total Protein Albumin Globulin Albumin/Globulin Ratio Meds: Medications Acetaminophen (Tylenol) 650 mg PO Q4-6HP PRN; Protocol PRN Reason: Per Pain Protocol/Fever > 101 Hydrocodone Bitart/Acetaminophen ([place] 5/325mg) 0 tab PO Q4HP PRN; Protocol PRN Reason: Per Pain Protocol Last Admin: 02/26/19 20:46 Dose: 2 tab Documented by: Albuterol/Ipratropium (Duoneb) 3 ml NEB Q4HRT [facility] Last Admin: 02/27/19 11:16 Dose: 3 ml Documented by: Bisacodyl (Dulcolax) 10 mg [place] Q2-3DAYS PRN PRN Reason: Constipation Budesonide (Pulmicort) 0.5 mg NEB Q12 [facility] Last Admin: 02/27/19 07:20 Dose: 0.5 mg Documented by: Docusate Sodium (Colace) 100 mg PO BID [facility] Last Admin: 02/27/19 09:55 Dose: 100 mg Documented by: Heparin Sodium (Porcine) (Heparin) 5,000 unit SQ Q12 [facility] Last Admin: 02/27/19 09:54 Dose: 5,000 unit Documented by: Hydromorphone HCl (Dilaudid) 0 mg IV Q4HP PRN; Protocol PRN Reason: Per Pain Protocol Last Admin: 02/27/19 03:22 Dose: 0.25 mg Documented by: Acetaminophen (Ofirmev) 650 mg in 65 mls @ 130 mls/hr IV Q6HP PRN; Protocol PRN Reason: Per Pain Protocol/Fever > 101 Magnesium Sulfate (Magnesium Sulfate) 2 gm in 50 mls @ 50 mls/hr IV UD PRN PRN Reason: MG = or < 1.7 Levofloxacin (Levaquin) 750 mg in 150 mls @ 100 mls/hr IV DAILY [facility]; Protocol Last Admin: 02/27/19 09:54 Dose: 100 mls/hr Documented by: Iron Carb/Multivit/[place]/Folic Acid (Multivitamin W/Minerals) 1 tab PO DAILY [facility] Last Admin: 02/27/19 09:55 Dose: 1 tab Documented by: Lorazepam (Ativan) 0.5 mg IV Q6HP PRN PRN Reason: ANXIETY/SEDATION Last Admin: 02/27/19 10:45 Dose: 0.5 mg Documented by: Magnesium Hydroxide (Milk Of Magnesia) 30 ml PO HSP PRN PRN Reason: Constipation Melatonin (Melatonin 3mg Tablet) 3 mg PO HSP PRN PRN Reason: Insomnia Nicotine (Nicoderm) 21 mg TOPICAL DAILY@1000 [facility] Last Admin: 02/27/19 09:54 Dose: 21 mg Documented by: Ondansetron HCl (Zofran Odt) 4 mg SL Q4-6HP PRN; Protocol PRN Reason: Nausea And Vomiting Ondansetron HCl (Zofran) 4 mg IV Q4-6HP PRN; Protocol PRN Reason: Nausea And Vomiting Polyethylene Glycol (Miralax) 17 gm PO DAILYP PRN PRN Reason: Constipation Potassium Chloride (Klor-Con) 40 meq PO DAILYP PRN PRN Reason: K+ < 3.5 Senna/Docusate Sodium (Senna Plus Tablet) 1 tab PO HS [facility] Last Admin: 02/26/19 20:51 Dose: Not Given Documented by: Sodium Chloride (Saline Flush) 10 ml IV Q8 [facility] Last Admin: 02/27/19 06:07 Dose: 10 ml Documented by: Thiamine HCl (Vitamin B1) 100 mg PO DAILY [facility] Last Admin: 02/27/19 09:55 Dose: 100 mg Documented by: Tramadol HCl (Ultram) 50 mg PO Q4-6HP PRN; Protocol PRN Reason: Per Pain Protocol Last Admin: 02/26/19 14:38 Dose: 50 mg Documented by: Medical - PN: A/P - Time Spent With Patient Total time spent is greater than 50% in coordination of care (as documented) at patient's floor/unit and/or counseling patient: 25 - 35 minutes (1) Metastatic cancer to chest wall Status: Acute Assessment and plan: * Worsening hypoxic respiratory failure secondary to lung collapse. imminent due to infiltrating lung mass. Brother made aware on telephone. Patient is a no code * Right lung collapse with obstructive pneumonia secondary to hilar mass . Patient does not want bronchoscopy or pulmonary interventions. Patient now DNR * Metastatic cancer likely lung primary with this extension to chest wall/bones. Continue aggressive pain management. * Pain management continue as needed opioids * COPD exacerbation-on bronchodilators for comfort * Protein calorie malnutrition-diet for comfort * Tobacco dependence-offered nicotine patch * DNR * Prophylaxis heparin Plan * Initiate aggressive pain and symptom management * All therapies and treatments directed towards comfort * imminent Current Visit: Yes Medical - PN: Qual - VTE Deep Vein Thrombosis/Pulmonary Embolism Present on Admission: No
[2019-02-27] MEDS ORDERED: ONDANSETRON 4 MG ODT TABLET SL PRN (16:19)
[2019-02-27] MEDS ORDERED: ONDANSETRON 4 MG/2 ML VIAL IV PRN (16:19)
[2019-02-27] MEDS ORDERED: LACTOPEROXI/GLUC OXID/POT THIO 1 EACH GEL..EA. TOPICAL PRN (16:19)
[2019-02-28] MEDS: LORazepam 2 MG/ML VIAL IV PRN ×6 (04:44→20:37)
--- NOTE | 2019-02-28 07:54 | Internal Med Progress Note ---
Medical - PN: Subj Patient information: Note initiated : 02/28/19 at 7:51 am Service Date, if different from initiated Date: [] Patient: Juanis Ward a 68 y/o F admitted on 02/24/19 for Weakness, SOB. Chief Complaint: [] Interval history: Ms. Ward is a 68 year old F with a known 100 pack history of smoking and COPD who presents to the second time to the ER in 24 hours after she is brought in by APS services with significant concerns about her ability to take care of herself. Patient was diagnosed with metastatic cancer on 02/[address] involving chest/mediastinum with right lung obstructive pneumonia/collapse. She however refused treatment and chose to go home. During today's evaluation a white count of 13,000, lactic acid 2.3 and profoundly hypoxic with sats low 80s. Patient expressed consent for hospitalization for management of COPD however she does not want cancer to be addressed and wants to be comfortable. She also refused IV steroids but agreeable to antibiotics and inhaled bronchodilators. Hospital service was consulted for management of above. At the time of evaluation patient is very anxious. She is extremely malnourished. Complains of mid chest pain in the setting of metastatic lung tumor. Pain exacerbates with movement and deep breaths. She endorses to yellow productive sputum with increasing purulence. She she also endorses to incontinence and occasional diarrhea. She endorses to loss of appetite but denies hemoptysis, headache or photophobia or vision changes. She denies sick contacts but continues to smoke to 3 packs a day. Her only next of kin is her brother Tremayne but does not have any other help or friends in town. She lives alone and from the description of APS services appears to be extremely unhygienic and hazardous health situation with feces everywhere. 02/25-patient intimately confused. No family members at bedside. Continues to refuse treatment. Wants to go home. Case management coordinating a safe discharge plan. No overnight fever chills. Hypoxia improved now on room air. White count down to 9.5. Poor nutritional status. 02/26-patient doing better. Now on room air. White count 7.6. Hemoglobin 10.1. Patient wishes to be full code. No family members available. 02/27 patient is clinically deteriorating. More confused and short of breath. I was able to get a hold of Tremayne Carranza patient's brother in [place]. He indicated that patient has not been in the best state of health and given her clinical situation he would not be able to provide much insight to directives as he is not the legal POA. He further confirmed that he is only been helping her sister with finances and respects shallowest wishes to be kept comfortable. I indicated that she might not make it to the hospitalization given right lung collapse due to infiltrating tumor and worsening shortness of breath with deterioration in mental status over the last 24 hours. I further advised to inform other family members who would like to see her for one last time before she succumbs to malignancy and respiratory failure. Brother Tremayne was appreciative of the call. 02/28-patient appears comfortable. Intermittent shortness of breath. Responds to commands. No concerns expressed by nursing staff. No family at bedside. Await case management further recommendations towards transition out of hospital. - Constitutional Vitals: Vital Signs Temp Pulse Resp BP Pulse Ox 97.3 F 83 16 147/74 96 02/28/19 07:45 02/28/19 07:45 02/28/19 07:45 02/28/19 07:45 02/28/19 07:45 Period Temp Pulse Resp BP Sys/Guerrero Pulse Ox Last 24 Hr 97.3 F-99.1 F 83-94 14- 108-170/65-91 96-99 Intake and Output 02/27/19 02/28/19 02/28/19 21:59 05:59 13:59 Intake Total 260 Output Total 5 1 Balance 255 -1 Weight 131 lb 8 oz Intake & Output: Intake & Output 02/27/19 02/28/19 02/28/19 21:59 05:59 13:59 Intake Total 260 Output Total 5 1 Balance 255 -1 Weight 131 lb 8 oz Intake: Oral 200 IV - Manual Only 60 Output: # of times incontinent of urine 5 1 Other: # Voids 1 Exam: Resting comfortably Nonlabored breathing No anxiety Medical - PN: Obj Da - Labs CBC & Chem 7: 02/27/19 04:10 02/27/19 04:10 Labs: Abnormal Lab Results 02/27/19 02/26/19 02/26/19 04:10 06:50 06:50 RDW 14.9 H Seg Neutrophils % Lymphocytes % Monocytes % (Manual) RBC Morphology Abnorm A Anisocytosis Few A Carbon Dioxide 21 L BUN 24 H AST 42 H Lactate Dehydrogenase 583 H 551 H Albumin 2.9 L Globulin 4.3 H 4.4 H Albumin/Globulin Ratio 0.7 L 0.8 L 02/25/19 03:50 RDW Seg Neutrophils % 79 H Lymphocytes % 5 L Monocytes % (Manual) 16 H RBC Morphology Anisocytosis Carbon Dioxide BUN AST Lactate Dehydrogenase Albumin Globulin Albumin/Globulin Ratio Meds: Medications Glucose Oxid/Lactoperoxid/Muramidas (Biotene) 1 each TOPICAL PRN PRN PRN Reason: Dry Mouth Hydromorphone HCl (Dilaudid) 0 mg IV Q2HP PRN PRN Reason: Pain Lorazepam (Ativan) 0 mg IV Q1HP PRN; Protocol PRN Reason: ANXIETY/SEDATION Last Admin: 02/28/19 07:03 Dose: 2 mg Documented by: Morphine Sulfate (Morphine) 0 mg IV Q1HP PRN PRN Reason: Pain Ondansetron HCl (Zofran Odt) 4 mg SL Q4HP PRN; Protocol PRN Reason: Nausea And Vomiting Ondansetron HCl (Zofran) 4 mg IV Q4HP PRN; Protocol PRN Reason: Nausea And Vomiting Sodium Chloride (Saline Flush) 10 ml IV Q8 BOYD Last Admin: 02/27/19 21:14 Dose: 10 ml Documented by: Medical - PN: A/P - Time Spent With Patient Total time spent is greater than 50% in coordination of care (as documented) at patient's floor/unit and/or counseling patient: 15 - 24 minutes (1) Metastatic cancer to chest wall Status: Acute Assessment and plan: * Worsening hypoxic respiratory failure secondary to lung collapse. Poor prognosis due to infiltrating lung mass. Brother made aware on telephone. Patient is now on end-of-life care per her wishes * Right lung collapse with obstructive pneumonia secondary to hilar mass. On end-of-life comfort interventions per patient wishes * Metastatic cancer likely lung primary with this extension to chest wall/bones. On aggressive pain management. * COPD exacerbation-continue as needed bronchodilators for comfort * Protein calorie malnutrition-continue diet for comfort * Tobacco dependence-continue nicotine patch * DNR * Prophylaxis heparin Plan * Continue aggressive pain and symptom management * All therapies and treatments directed towards comfort * Case management coordinate discharge planning to hospice Current Visit: Yes Medical - PN: Qual - VTE Deep Vein Thrombosis/Pulmonary Embolism Present on Admission: No
[2019-02-28] MEDS: 0.9 % SODIUM CHLORIDE 10 ML SYRINGE IV SCH ×3 (10:25→20:37)
[2019-03-01] MEDS: LORazepam 2 MG/ML VIAL IV PRN ×4 (00:16→14:57)
[2019-03-01] MEDS: 0.9 % SODIUM CHLORIDE 10 ML SYRINGE IV SCH ×3 (08:05→21:10)
[2019-03-01] MEDS: HYDROmorphone 2 MG/ML VIAL IV PRN (11:43)
--- NOTE | 2019-03-01 12:41 | Internal Med Progress Note ---
Medical - PN: Subj Patient information: Note initiated : 03/01/19 at 12:39 pm Service Date, if different from initiated Date: [] Patient: Juanis Ward a 68 y/o F admitted on 02/24/19 for Weakness, SOB. Chief Complaint: [] Interval history: Ms. Ward is a 68 year old F with a known 100 pack history of smoking and COPD who presents to the second time to the ER in 24 hours after she is brought in by APS services with significant concerns about her ability to take care of herself. Patient was diagnosed with metastatic cancer on 02/[address] involving chest/mediastinum with right lung obstructive pneumonia/collapse. She however refused treatment and chose to go home. During today's evaluation a white count of 13,000, lactic acid 2.3 and profoundly hypoxic with sats low 80s. Patient expressed consent for hospitalization for management of COPD however she does not want cancer to be addressed and wants to be comfortable. She also refused IV steroids but agreeable to antibiotics and inhaled bronchodilators. Hospital service was consulted for management of above. At the time of evaluation patient is very anxious. She is extremely malnourished. Complains of mid chest pain in the setting of metastatic lung tumor. Pain exacerbates with movement and deep breaths. She endorses to yellow productive sputum with increasing purulence. She she also endorses to incontinence and occasional diarrhea. She endorses to loss of appetite but denies hemoptysis, headache or photophobia or vision changes. She denies sick contacts but continues to smoke to 3 packs a day. Her only next of kin is her brother Tremayne but does not have any other help or friends in town. She lives alone and from the description of APS services appears to be extremely unhygienic and hazardous health situation with feces everywhere. 02/25-patient intimately confused. No family members at bedside. Continues to refuse treatment. Wants to go home. Case management coordinating a safe discharge plan. No overnight fever chills. Hypoxia improved now on room air. White count down to 9.5. Poor nutritional status. 02/26-patient doing better. Now on room air. White count 7.6. Hemoglobin 10.1. Patient wishes to be full code. No family members available. 02/27 patient is clinically deteriorating. More confused and short of breath. I was able to get a hold of Tremayne Carranza patient's brother in [place]. He indicated that patient has not been in the best state of health and given her c linical situation he would not be able to provide much insight to directives as he is not the legal POA. He further confirmed that he is only been helping her sister with finances and respects shallowest wishes to be kept comfortable. I indicated that she might not make it to the hospitalization given right lung collapse due to infiltrating tumor and worsening shortness of breath with deterioration in mental status over the last 24 hours. I further advised to inform other family members who would like to see her for one last time before she succumbs to malignancy and respiratory failure. Brother Tremayne was appreciative of the call. 02/28-patient appears comfortable. Intermittent shortness of breath. Responds to commands. No concerns expressed by nursing staff. No family at bedside. Await case management further recommendations towards transition out of hospital. 03/01-patient remains on end-of-life care with comfort measures and added morphine for respiratory distress patient seems to be comfortable no respiratory distress. Awaiting case management recommendation towards discharge Pertinent ROS: Review of systems unable to obtain due to mental status - Constitutional Vitals: Vital Signs Temp Pulse Resp BP Pulse Ox 97.6 F 95 H 15 153/69 87 L 03/01/19 07:38 03/01/19 09:20 03/01/19 09:20 03/01/19 07:38 03/01/19 09:32 Period Temp Pulse Resp BP Sys/Guerrero Pulse Ox Last 24 Hr 97.6 F-97.7 F 87-97 15-20 147-153/69-98 87-93 Intake and Output 02/28/19 03/01/19 03/01/19 21:59 05:59 13:59 Intake Total 20 Output Total 2 2 Balance 18 -2 Intake & Output: Intake & Output 02/28/19 03/01/19 03/01/19 21:59 05:59 13:59 Intake Total 20 Output Total 2 2 Balance 18 -2 Intake: Oral 20 Output: # of times incontinent of urine 2 2 - Head Head exam: Present: normal inspection - Eye Eye exam: Present: normal appearance - ENT ENT exam: Present: normal exam, normal external ear exam - Respiratory Respiratory exam: Present: accessory muscle use, decreased breath sounds - Cardiovascular Cardiovascular exam: Present: normal rate and rhythm - GI/Abdominal GI/Abdominal exam: Absent: distended - Neurological Exam Neurological exam: Present: alert. Absent: motor sensory deficit, oriented X3 Medical - PN: Obj Da - Labs CBC & Chem 7: 02/27/19 04:10 02/27/19 04:10 Labs: Abnormal Lab Results 02/27/19 04:10 Carbon Dioxide 21 L AST 42 H Lactate Dehydrogenase 583 H Albumin 2.9 L Globulin 4.3 H Albumin/Globulin Ratio 0.7 L Meds: Medications Glucose Oxid/Lactoperoxid/Muramidas (Biotene) 1 each TOPICAL PRN PRN PRN Reason: Dry Mouth Hydromorphone HCl (Dilaudid) 0 mg IV Q2HP PRN PRN Reason: Pain Last Admin: 03/01/19 11:43 Dose: 1 mg Documented by: Lorazepam (Ativan) 0 mg IV Q1HP PRN; Protocol PRN Reason: ANXIETY/SEDATION Last Admin: 03/01/19 10:47 Dose: 2 mg Documented by: Morphine Sulfate (Morphine) 0 mg IV Q1HP PRN PRN Reason: Pain Morphine Sulfate (Morphine) 4 mg NEB Q4HP PRN; Protocol PRN Reason: Shortness Of Breath Last Admin: 03/01/19 09:21 Dose: 4 mg Documented by: Ondansetron HCl (Zofran Odt) 4 mg SL Q4HP PRN; Protocol PRN Reason: Nausea And Vomiting Ondansetron HCl (Zofran) 4 mg IV Q4HP PRN; Protocol PRN Reason: Nausea And Vomiting Sodium Chloride (Saline Flush) 10 ml IV Q8 BOYD Last Admin: 03/01/19 08:05 Dose: 10 ml Documented by: Medical - PN: A/P - Time Spent With Patient Total time spent is greater than 50% in coordination of care (as documented) at patient's floor/unit and/or counseling patient: - Narrative A/P Narrative: Acute hypoxic respiratory failure with obstructive pneumonia secondary to lung mass and tumor Metastatic lung cancer extension to chest wall and bones Patient is on end-of-life care with comfort care measures Added morphine for respiratory distress Worsening hypoxic respiratory failure due to lung collapse-use nebulizer treat ment for comfort Discussed with the family and they desire to continue comfort care COPD exacerbation Bronchodilator therapy as needed Severe protein calorie malnutrition Continue diet for comfort Tobacco dependence Continue nicotine patch CODE STATUS-DNR comfort care measures only DVT prophylaxis subcu heparin Discharge planning-Case management on board for transition out of the hospital Medical - PN: Qual - VTE Deep Vein Thrombosis/Pulmonary Embolism Present on Admission: No
[2019-03-02] MEDS: LORazepam 2 MG/ML VIAL IV PRN (03:18)
[2019-03-02] MEDS: 0.9 % SODIUM CHLORIDE 10 ML SYRINGE IV SCH ×3 (03:19→16:32)
[2019-03-02] MEDS: HYDROmorphone 2 MG/ML VIAL IV PRN ×3 (08:26→16:30)
[2019-03-02] MEDS: morphine 20 MG/ML ORAL.CONC SL PRN (11:39)
--- NOTE | 2019-03-02 20:22 | Internal Med Progress Note ---
Medical - PN: Subj Patient information: Note initiated : 03/02/19 at 8:19 pm Service Date, if different from initiated Date: [] Patient: Juanis Ward 68 y/o F admitted on 02/24/19 for Weakness, SOB. Chief Complaint: [] - Constitutional Vitals: Vital Signs Temp Pulse Resp BP Pulse Ox 99.1 F H 100 H 10 L 137/79 90 03/02/19 06:54 03/02/19 06:54 03/02/19 19:06 03/02/19 06:54 03/02/19 06:54 Period Temp Pulse Resp BP Sys/Guerrero Pulse Ox Last 24 Hr 99.1 F 95-100 10-26 137/79 90-96 Intake and Output 03/02/19 03/02/19 03/02/19 05:59 13:59 21:59 Output Total 1 Balance -1 Intake & Output: Intake & Output 03/02/19 03/02/19 03/02/19 05:59 13:59 21:59 Output Total 1 Balance -1 Output: # of times incontinent of urine 1 Other: Urine Appearance Clear Urine Color Dark Yellow Urine Odor Normal Stool Size Small Stool Color Brown Stool Consistency Dry and Hard # Bowel Movements 1 # of times incontinent of 1 Bowels - Head Head exam: Present: atraumatic, normal inspection - Eye Eye exam: Present: normal appearance. Absent: conjunctival injection - ENT ENT exam: Present: mucous membranes dry, normal exam - Neck Neck exam: Present: normal inspection. Absent: lymphadenopathy - Respiratory Respiratory exam: Present: accessory muscle use, decreased breath sounds, respiratory distress - Cardiovascular Cardiovascular exam: Present: normal rate and rhythm. Absent: bradycardia - GI/Abdominal GI/Abdominal exam: Present: soft. Absent: distended - Neurological Exam Neurological exam: Absent: alert, motor sensory deficit, oriented X3 Medical - PN: Obj Da - Labs CBC & Chem 7: 02/27/19 04:10 02/27/19 04:10 Meds: Medications Glucose Oxid/Lactoperoxid/Muramidas (Biotene) 1 each TOPICAL PRN PRN PRN Reason: Dry Mouth Hydromorphone HCl (Dilaudid) 0 mg IV Q2HP PRN PRN Reason: Pain Last Admin: 03/02/19 16:30 Dose: 2 mg Documented by: Lorazepam (Ativan) 0 mg IV Q1HP PRN; Protocol PRN Reason: ANXIETY/SEDATION Last Admin: 03/02/19 03:18 Dose: 1 mg Documented by: Morphine Sulfate (Morphine) 0 mg IV Q1HP PRN PRN Reason: Pain Morphine Sulfate (Morphine) 4 mg NEB Q4HP PRN; Protocol PRN Reason: Shortness Of Breath Last Admin: 03/02/19 04:03 Dose: 4 mg Documented by: Morphine Sulfate (Morphine) 5 mg SL Q2HP PRN PRN Reason: Pain Last Admin: 03/02/19 11:39 Dose: 5 mg Documented by: Ondansetron HCl (Zofran Odt) 4 mg SL Q4HP PRN; Protocol PRN Reason: Nausea And Vomiting Ondansetron HCl (Zofran) 4 mg IV Q4HP PRN; Protocol PRN Reason: Nausea And Vomiting Sodium Chloride (Saline Flush) 10 ml IV Q8 BOYD Last Admin: 03/02/19 16:32 Dose: 10 ml Documented by: Medical - PN: A/P - Time Spent With Patient Total time spent is greater than 50% in coordination of care (as documented) at patient's floor/unit and/or counseling patient: - Narrative A/P Narrative: Acute hypoxic respiratory failure with obstructive pneumonia secondary to lung mass and tumor Metastatic lung cancer extension to chest wall and bones Patient is on end-of-life care with comfort care measures Added morphine for respiratory distress Worsening hypoxic respiratory failure due to lung collapse-use nebulizer treatment for comfort Discussed with the family and they desire to continue comfort care COPD exacerbation Bronchodilator therapy as needed Will change IV morphine to sublingual form We will avoid any IV medicines for now Updated case management social service-patient will need to be placed Severe protein calorie malnutrition Continue diet for comfort Tobacco dependence Continue nicotine patch CODE STATUS-DNR comfort care measures only DVT prophylaxis subcu heparin Medical - PN: Qual - VTE Deep Vein Thrombosis/Pulmonary Embolism Present on Admission: No
[2019-03-03] MEDS: 0.9 % SODIUM CHLORIDE 10 ML SYRINGE IV SCH ×4 (02:10→22:13)
[2019-03-03] MEDS: LORazepam 2 MG/ML VIAL IV PRN (02:11)
[2019-03-03] MEDS: HYDROmorphone 2 MG/ML VIAL IV PRN ×5 (06:20→23:09)
--- NOTE | 2019-03-03 09:50 | Internal Med Progress Note ---
Medical - PN: Subj Patient information: Note initiated : 03/03/19 at 9:49 am Service Date, if different from initiated Date: [] Patient: Juanis Ward a 68 y/o F admitted on 02/24/19 for Weakness, SOB. Chief Complaint: [] Interval history: Ms. Ward is a 68 year old F with a known 100 pack history of smoking and COPD who presents to the second time to the ER in 24 hours after she is brought in by APS services with significant concerns about her ability to take care of herself. Patient was diagnosed with metastatic cancer on 02/[address] involving chest/mediastinum with right lung obstructive pneumonia/collapse. She however refused treatment and chose to go home. During today's evaluation a white count of 13,000, lactic acid 2.3 and profoundly hypoxic with sats low 80s. Patient expressed consent for hospitalization for management of COPD however she does not want cancer to be addressed and wants to be comfortable. She also refused IV steroids but agreeable to antibiotics and inhaled bronchodilators. Hospital service was consulted for management of above. At the time of evaluation patient is very anxious. She is extremely malnourished. Complains of mid chest pain in the setting of metastatic lung tumor. Pain exacerbates with movement and deep breaths. She endorses to yellow productive sputum with increasing purulence. She she also endorses to incontinence and occasional diarrhea. She endorses to loss of appetite but denies hemoptysis, headache or photophobia or vision changes. She denies sick contacts but continues to smoke to 3 packs a day. Her only next of kin is her brother Tremayne but does not have any other help or friends in town. She lives alone and from the description of APS services appears to be extremely unhygienic and hazardous health situation with feces everywhere. 02/25-patient intimately confused. No family members at bedside. Continues to refuse treatment. Wants to go home. Case management coordinating a safe discharge plan. No overnight fever chills. Hypoxia improved now on room air. White count down to 9.5. Poor nutritional status. 02/26-patient doing better. Now on room air. White count 7.6. Hemoglobin 10.1. Patient wishes to be full code. No family members available. 02/27 patient is clinically deteriorating. More confused and short of breath. I was able to get a hold of Tremayne Carranza patient's brother in [place]. He indicated that patient has not been in the best state of health and given her c linical situation he would not be able to provide much insight to directives as he is not the legal POA. He further confirmed that he is only been helping her sister with finances and respects shallowest wishes to be kept comfortable. I indicated that she might not make it to the hospitalization given right lung collapse due to infiltrating tumor and worsening shortness of breath with deterioration in mental status over the last 24 hours. I further advised to inform other family members who would like to see her for one last time before she succumbs to malignancy and respiratory failure. Brother Tremayne was appreciative of the call. 02/28-patient appears comfortable. Intermittent shortness of breath. Responds to commands. No concerns expressed by nursing staff. No family at bedside. Await case management further recommendations towards transition out of hospital. 03/01-patient remains on end-of-life care with comfort measures and added morphine for respiratory distress patient seems to be comfortable no respiratory distress. Awaiting case management recommendation towards discharge 03/02-patient IV morphine was changed to sublingual morphine. Updated social service patient might benefit from placement in hospice if she continues to be status quo 03/03-patient appears to be comfortable with the sublingual morphine and will avoid any IV morphine for now. Discussed with the social service and case management. Pertinent ROS: Unable to obtain due to her mental status - Constitutional Vitals: Vital Signs Temp Pulse Resp BP Pulse Ox 98.3 F 94 H 12 124/69 95 03/02/19 19:38 03/02/19 19:38 03/03/19 08:56 03/02/19 19:38 03/02/19 19:38 Period Temp Pulse Resp BP Sys/Guerrero Pulse Ox Last 24 Hr 98.3 F 94 10- 124/69 95 Intake and Output 03/02/19 03/03/19 03/03/19 21:59 05:59 13:59 Intake Total 0 Output Total 1 Balance -1 0 Intake & Output: Intake & Output 03/02/19 03/03/19 03/03/19 21:59 05:59 13:59 Intake Total 0 Output Total 1 Balance -1 0 Intake: Oral 0 Output: # of times incontinent of urine 1 Other: Urine Appearance Clear Urine Color Dark Yellow Urine Odor Normal Stool Size Small Stool Color Brown Stool Consistency Dry and Hard # of times incontinent of 1 Bowels Medical - PN: Obj Da - Labs CBC & Chem 7: 02/27/19 04:10 02/27/19 04:10 Meds: Medications Glucose Oxid/Lactoperoxid/Muramidas (Biotene) 1 each TOPICAL PRN PRN PRN Reason: Dry Mouth Hydromorphone HCl (Dilaudid) 0 mg IV Q2HP PRN PRN Reason: Pain Last Admin: 03/02/19 16:30 Dose: 2 mg Documented by: Lorazepam (Ativan) 0 mg IV Q1HP PRN; Protocol PRN Reason: ANXIETY/SEDATION Last Admin: 03/03/19 02:11 Dose: 2 mg Documented by: Morphine Sulfate (Morphine) 0 mg IV Q1HP PRN PRN Reason: Pain Morphine Sulfate (Morphine) 4 mg NEB Q4HP PRN; Protocol PRN Reason: Shortness Of Breath Last Admin: 03/03/19 05:24 Dose: 4 mg Documented by: Morphine Sulfate (Morphine) 5 mg SL Q2HP PRN PRN Reason: Pain Last Admin: 03/02/19 11:39 Dose: 5 mg Documented by: Ondansetron HCl (Zofran Odt) 4 mg SL Q4HP PRN; Protocol PRN Reason: Nausea And Vomiting Ondansetron HCl (Zofran) 4 mg IV Q4HP PRN; Protocol PRN Reason: Nausea And Vomiting Sodium Chloride (Saline Flush) 10 ml IV Q8 BOYD Last Admin: 03/03/19 05:21 Dose: 10 ml Documented by: Medical - PN: A/P - Time Spent With Patient Total time spent is greater than 50% in coordination of care (as documented) at patient's floor/unit and/or counseling patient: - Narrative A/P Narrative: Acute hypoxic respiratory failure with obstructive pneumonia secondary to lung mass and tumor Metastatic lung cancer extension to chest wall and bones Patient is on end-of-life care with comfort care measures Added morphine for respiratory distress Worsening hypoxic respiratory failure due to lung collapse-use nebulizer treatment for comfort Discussed with the family and they desire to continue comfort care COPD exacerbation Bronchodilator therapy as needed Will change IV morphine to sublingual form We will avoid any IV medicines for now Updated case management social service-patient will need to be placed Severe protein calorie malnutrition Continue diet for comfort Tobacco dependence Continue nicotine patch CODE STATUS-DNR comfort care measures only DVT prophylaxis subcu heparin Pending placement Medical - PN: Qual - VTE Deep Vein Thrombosis/Pulmonary Embolism Present on Admission: No
[2019-03-03] MEDS: morphine 20 MG/ML ORAL.CONC SL PRN (22:13)
[2019-03-04] MEDS: 0.9 % SODIUM CHLORIDE 10 ML SYRINGE IV SCH (04:15)
--- NOTE | 2019-03-04 12:01 | Death Note ---
Discharge Sum: Prov - Provider Patient information: Note initiated : 03/04/19 at 11:58 am Service Date, if different from initiated Date: [] Patient: Juanis Ward a 68 y/o F admitted on 02/24/19 for Weakness, SOB. Chief Complaint: [] Primary care physician: PCP No Discharge Sum: Diag - PCOD Cause of : Respiratory obstruction - Contributing Factors (1) COPD (chronic obstructive pulmonary disease) Smoking Discharge Sum: Summary - Date and Time Date of admission: 02/24/19 14:02 Date of : 03/04/19 Time of : 07:56 - Summary Details: Ms. Ward is a 68 year old F with a known 100 pack history of smoking and COPD who presents to the second time to the ER in 24 hours after she is brought in by APS services with significant concerns about her ability to take care of herself. Patient was diagnosed with metastatic cancer on 02/[address] involving chest/mediastinum with right lung obstructive pneumonia/collapse. She however refused treatment and chose to go home. During today's evaluation a white count of 13,000, lactic acid 2.3 and profoundly hypoxic with sats low 80s. Patient expressed consent for hospitalization for management of COPD however she does not want cancer to be addressed and wants to be comfortable. She also refused IV steroids but agreeable to antibiotics and inhaled bronchodilators. Hospital service was consulted for management of above. At the time of evaluation patient is very anxious. She is extremely malnourished. Complains of mid chest pain in the setting of metastatic lung tumor. Pain exacerbates with movement and deep breaths. She endorses to yellow productive sputum with increasing purulence. She she also endorses to incontinence and occasional diarrhea. She endorses to loss of appetite but denies hemoptysis, headache or photophobia or vision changes. She denies sick contacts but continues to smoke to 3 packs a day. Her only next of kin is her brother Tremayne but does not have any other help or friends in town. She lives alone and from the description of APS services appears to be extremely unhygienic and hazardous health situation with feces everywhere. 02/25-patient intimately confused. No family members at bedside. Continues to refuse treatment. Wants to go home. Case management coordinating a safe discharge plan. No overnight fever chills. Hypoxia improved now on room air. White count down to 9.5. Poor nutritional status. 02/26-patient doing better. Now on room air. White count 7.6. Hemoglobin 10.1. Patient wishes to be full code. No family members available. 02/27 patient is clinically deteriorating. More confused and short of breath. I was able to get a hold of Tremayne Carranza patient's brother in [place]. He indicated that patient has not been in the best state of health and given her clinical situation he would not be able to provide much insight to directives as he is not the legal POA. He further confirmed that he is only been helping her sister with finances and respects shallowest wishes to be kept comfortable. I indicated that she might not make it to the hospitalization given right lung collapse due to infiltrating tumor and worsening shortness of breath with deterioration in mental status over the last 24 hours. I further advised to inform other family members who would like to see her for one last time before she succumbs to malignancy and respiratory failure. Brother Tremayne was appreciative of the call. 02/28-patient appears comfortable. Intermittent shortness of breath. Responds to commands. No concerns expressed by nursing staff. No family at bedside. Await case management further recommendations towards transition out of hospital. 03/01-patient remains on end-of-life care with comfort measures and added morphine for respiratory distress patient seems to be comfortable no respiratory distress. Awaiting case management recommendation towards discharge 03/02-patient IV morphine was changed to sublingual morphine. Updated social service patient might benefit from placement in hospice if she continues to be status quo 03/03-patient appears to be comfortable with the sublingual morphine and will avoid any IV morphine for now. Discussed with the social service and case management. 03/04-patient remained comfortable and peacefully on 03/04/2019 at 0756 Acute hypoxic respiratory failure with obstructive pneumonia secondary to lung mass and tumor Metastatic lung cancer extension to chest wall and bones Patient is on end-of-life care with comfort care measures Added morphine for respiratory distress Worsening hypoxic respiratory failure due to lung collapse-use nebulizer treatment for comfort Discussed with the family and they desire to continue comfort care and comfort care measures activated COPD exacerbation Bronchodilator therapy as needed sublingual morphine as needed for discomfort Severe protein calorie malnutrition Continue diet for comfort Tobacco dependence Continue nicotine patch - Additional Data Attending physician: Srikanth Allison
== END 2019-03-04 10:00 | disposition expired | DRG 189 ==
LOC: ED 10:29 → MEDSUR 14:02
PROVIDERS: ADMIT Internal Medicine; ATTEND Internal Medicine